=== PATIENT | female | born 1990 | race Hispanic/Latino ===

== ENCOUNTER 2017-02-02 00:27 | Emergency (ER) | payer OTHER ==
[2017-02-02] MEDS ORDERED: Ketorolac Tromethamine 30 MG/ML VIAL ONE (00:51)
[2017-02-02] MEDS ORDERED: Ondansetron HCl/PF 4 MG/2 ML Vial ONE (01:37)
[2017-02-02] MEDS ORDERED: levETIRAcetam In NaCl (Iso-Os) 1,000 MG in Premix Bag 1 BAG IVPB SCH ×2 (01:45)
== END 2017-02-02 02:38 | disposition home or self-care (01) ==
LOC: ERS 00:27
DX: G40.909 Epilepsy, unspecified, not intractable, without status epilepticus (principal); R78.89 Finding of other specified substances, not normally found in blood
CPT/HCPCS: 80177; 96361; 96365; 96375; J1885; J1953; J2405